=== PATIENT | male | born 1955 | race Caucasian/White ===

== ENCOUNTER → 2021-04-05 08:12 | Outpatient (CLI) | payer MEDICARE, OTHER, SELFPAY ==
[2021-04-05 19:42] LABS: Add Manual Diff / Slide Review NO; Basophils Absolute Auto 0 /uL (0-100); Basophils Percent Auto 0.7 % (0-2); Eosinophils Absolute Auto 0 /uL (0-450); Eosinophils Percent Auto 0.8 % (2-4); Hematocrit 41.3 % (41-53); Hemoglobin 13.9 g/dL (13.5-17.5); Lymphocytes Absolute Auto 1900 /uL (1100-4500); Lymphocytes Percent Auto 33.4 % (25-40); Mean Corpuscular HGB Conc 33.6 % (30-36); Mean Corpuscular Volume 104.4 fL (80-100); Monocytes Absolute Auto 400 /uL (0-900); Monocytes Percent Auto 7.2 % (3-14); Neutrophils Absolute Auto 3200 /uL (1500-7000); Neutrophils Percent Auto 57.9 % (50-75); Platelet Count 328 X10^3/uL (150-400); Red Blood Cell Count 3.96 X10^6/uL (4.5-5.9); White Blood Cell Count 5.6 X10^3/uL (4.5-11.0)
[2021-04-05 20:46] LABS: HEMOLYSIS < 15 (0-50); Iron 123 ug/dL (49-181)
[2021-04-05 20:58] LABS: Percent Iron Saturation 38 % (20-50); Total Iron Binding Capacity 325 ug/dL (261-462); Transferrin 249 mg/dL (206-381)
[2021-04-06 05:33] LABS: Folate 8.8 ng/mL (2.76-20.0); Vitamin B12 531 pg/mL (239-931)
== END ==
PROVIDERS: PCP Internal Medicine; Visit Provider Internal Medicine
DX: E83.110 Hereditary hemochromatosis (principal)
CPT/HCPCS: 82607; 82746; 83540; 83550; 85025

== ENCOUNTER → 2021-04-14 11:04 | Outpatient (CLI) | payer MEDICARE, OTHER, SELFPAY ==
[2021-04-14 19:37] LABS: Ferritin 265 ng/mL (18-464)
== END ==
PROVIDERS: PCP Internal Medicine; Visit Provider Internal Medicine
DX: E83.110 Hereditary hemochromatosis (principal)
CPT/HCPCS: 82728

== ENCOUNTER → 2021-08-15 11:23 | Outpatient (CLI) | payer MEDICARE, OTHER, SELFPAY ==
[2021-08-15 19:36] LABS: HEMOLYSIS < 15 (0-50); Iron 158 ug/dL (49-181)
[2021-08-15 19:40] LABS: Add Manual Diff / Slide Review NO; Basophils Absolute Auto 0 /uL (0-100); Basophils Percent Auto 0.8 % (0-2); Eosinophils Absolute Auto 100 /uL (0-450); Eosinophils Percent Auto 1.3 % (2-4); Hematocrit 39.7 % (41-53); Hemoglobin 13.8 g/dL (13.5-17.5); Lymphocytes Absolute Auto 1400 /uL (1100-4500); Lymphocytes Percent Auto 26.6 % (25-40); Mean Corpuscular HGB Conc 34.7 % (30-36); Mean Corpuscular Hemoglobin 35.5 PG (26-34); Mean Corpuscular Volume 102.6 fL (80-100); Monocytes Absolute Auto 400 /uL (0-900); Monocytes Percent Auto 8.7 % (3-14); Neutrophils Absolute Auto 3200 /uL (1500-7000); Neutrophils Percent Auto 62.6 % (50-75); Platelet Count 313 X10^3/uL (150-400); Red Blood Cell Count 3.87 X10^6/uL (4.5-5.9); Red Cell Distribution Width 11.8 % (11.6-14.8); White Blood Cell Count 5.1 X10^3/uL (4.5-11.0)
[2021-08-15 19:49] LABS: Percent Iron Saturation 50 % (20-50); Total Iron Binding Capacity 313 ug/dL (261-462); Transferrin 252 mg/dL (206-381)
[2021-08-15 20:15] LABS: Ferritin 345 ng/mL (18-464)
[2021-08-15 20:46] LABS: Folate 11.9 ng/mL (2.76-20.0); Vitamin B12 656 pg/mL (239-931)
== END ==
PROVIDERS: PCP Internal Medicine; Referring Provider Internal Medicine; Visit Provider Internal Medicine
DX: E83.110 Hereditary hemochromatosis (principal)
CPT/HCPCS: 82607; 82728; 82746; 83540; 83550; 85025

== ENCOUNTER → 2022-02-23 13:03 | Outpatient (CLI) | payer MEDICARE, OTHER, SELFPAY ==
[2022-02-23 18:48] LABS: Add Manual Diff / Slide Review NO; Basophils Absolute Auto 100 /uL (0-100); Basophils Percent Auto 1.2 % (0-2); Eosinophils Absolute Auto 100 /uL (0-450); Hematocrit 37.6 % (41-53); Hemoglobin 13.1 g/dL (13.5-17.5); Lymphocytes Absolute Auto 1800 /uL (1100-4500); Lymphocytes Percent Auto 28.9 % (25-40); Mean Corpuscular Hemoglobin 34.5 PG (26-34); Mean Corpuscular Volume 98.5 fL (80-100); Monocytes Absolute Auto 400 /uL (0-900); Monocytes Percent Auto 7.3 % (3-14); Neutrophils Absolute Auto 3700 /uL (1500-7000); Neutrophils Percent Auto 60.6 % (50-75); Platelet Count 332 X10^3/uL (150-400); Red Blood Cell Count 3.81 X10^6/uL (4.5-5.9); White Blood Cell Count 6.2 X10^3/uL (4.5-11.0)
[2022-02-23 18:51] LABS: HEMOLYSIS < 15 (0-50); Iron 137 ug/dL (49-181)
[2022-02-23 18:52] LABS: Alanine Aminotransferase 29 IU/L (<50); Albumin Globulin Ratio 1.5 (1.0-2.8); Alkaline Phosphatase 53 U/L (38-126); Aspartate Aminotransferase 27 IU/L (17-59); BUN Creatinine Ratio 29.1 (6-22); Bilirubin Total 0.3 mg/dL (0.2-1.3); Blood Urea Nitrogen 23 mg/dL (9-20); Calcium 8.8 mg/dL (8.4-10.2); Carbon Dioxide 28 mmol/L (22-32); Chloride 106 mmol/L (98-107); Estimated Glomerular Filt Rate > 60 mL/min (>60); Globulin 2.7 g/dL (1.7-4.1); Glucose 148 mg/dL (80-110); HEMOLYSIS < 15 (0-50); Potassium 3.9 mmol/L (3.4-5.1); Sodium 141 mmol/L (137-145); Total Protein 6.7 g/dL (6.3-8.2)
[2022-02-23 19:02] LABS: Percent Iron Saturation 42 % (20-50); Total Iron Binding Capacity 327 ug/dL (261-462); Transferrin 246 mg/dL (206-381)
[2022-02-23 19:16] LABS: Prostate Specific Antigen 2.23 ng/mL (0.10-4.00)
[2022-02-26 10:22] LABS: Ferritin 148 ng/mL (18-464)
== END ==
PROVIDERS: PCP Internal Medicine; Visit Provider Internal Medicine
DX: R97.20 Elevated prostate specific antigen [PSA] (principal); D53.9 Nutritional anemia, unspecified; E83.110 Hereditary hemochromatosis
CPT/HCPCS: 80053; 82728; 83540; 83550; 84153; 85025

== ENCOUNTER → 2022-08-21 13:22 | Outpatient (CLI) | payer MEDICARE, OTHER, SELFPAY ==
[2022-08-21 19:12] LABS: Add Manual Diff / Slide Review NO; Basophils Absolute Auto 0 /uL (0-100); Basophils Percent Auto 0.5 % (0-2); Eosinophils Absolute Auto 100 /uL (0-450); Eosinophils Percent Auto 1.1 % (2-4); Hematocrit 40.4 % (41-53); Hemoglobin 13.9 g/dL (13.5-17.5); Lymphocytes Absolute Auto 2300 /uL (1100-4500); Lymphocytes Percent Auto 35.8 % (25-40); Mean Corpuscular HGB Conc 34.4 % (30-36); Mean Corpuscular Hemoglobin 34.4 PG (26-34); Monocytes Absolute Auto 500 /uL (0-900); Monocytes Percent Auto 7.7 % (3-14); Neutrophils Absolute Auto 3500 /uL (1500-7000); Neutrophils Percent Auto 54.9 % (50-75); Platelet Count 279 X10^3/uL (150-400); Red Blood Cell Count 4.04 X10^6/uL (4.5-5.9); Red Cell Distribution Width 12.7 % (11.6-14.8); White Blood Cell Count 6.4 X10^3/uL (4.5-11.0)
[2022-08-21 19:45] LABS: HEMOLYSIS < 15 (0-50); Iron 162 ug/dL (49-181)
[2022-08-21 19:47] LABS: Alanine Aminotransferase 33 IU/L (<50); Albumin 4.3 g/dL (3.5-5.0); Albumin Globulin Ratio 1.4 (1.0-2.8); Alkaline Phosphatase 57 U/L (38-126); Aspartate Aminotransferase 30 IU/L (17-59); BUN Creatinine Ratio 22.9 (6-22); Bilirubin Total 0.4 mg/dL (0.2-1.3); Blood Urea Nitrogen 22 mg/dL (9-20); Calcium 9.2 mg/dL (8.4-10.2); Carbon Dioxide 30 mmol/L (22-32); Chloride 99 mmol/L (98-107); Estimated Glomerular Filt Rate > 60 mL/min (>60); Glucose 118 mg/dL (80-110); HEMOLYSIS < 15 (0-50); Potassium 4.1 mmol/L (3.4-5.1); Sodium 139 mmol/L (137-145); Total Protein 7.3 g/dL (6.3-8.2)
[2022-08-21 19:55] LABS: Percent Iron Saturation 44 % (20-50); Total Iron Binding Capacity 367 ug/dL (261-462); Transferrin 270 mg/dL (206-381)
[2022-08-21 20:17] LABS: Ferritin 128 ng/mL (18-464)
== END ==
PROVIDERS: PCP Internal Medicine; Visit Provider Internal Medicine
DX: E83.110 Hereditary hemochromatosis (principal); D53.9 Nutritional anemia, unspecified; R97.20 Elevated prostate specific antigen [PSA]
CPT/HCPCS: 80053; 82728; 83540; 83550; 85025

== ENCOUNTER → 2023-01-11 10:31 | Outpatient (CLI) | payer MEDICARE, OTHER, SELFPAY ==
[2023-01-11 18:32] LABS: HEMOLYSIS < 15 (0-50); Iron 126 ug/dL (49-181)
[2023-01-11 18:37] LABS: Add Manual Diff / Slide Review NO; Basophils Absolute Auto 0 /uL (0-100); Basophils Percent Auto 0.8 % (0-2); Eosinophils Absolute Auto 200 /uL (0-450); Eosinophils Percent Auto 3.7 % (2-4); Hematocrit 42.3 % (41-53); Hemoglobin 14.4 g/dL (13.5-17.5); Lymphocytes Absolute Auto 1800 /uL (1100-4500); Lymphocytes Percent Auto 32.3 % (25-40); Mean Corpuscular HGB Conc 34.1 % (30-36); Mean Corpuscular Hemoglobin 34.2 PG (26-34); Mean Corpuscular Volume 100.3 fL (80-100); Monocytes Absolute Auto 500 /uL (0-900); Monocytes Percent Auto 9.3 % (3-14); Neutrophils Absolute Auto 3100 /uL (1500-7000); Neutrophils Percent Auto 53.9 % (50-75); Platelet Count 297 X10^3/uL (150-400); Red Blood Cell Count 4.21 X10^6/uL (4.5-5.9); Red Cell Distribution Width 12.3 % (11.6-14.8); White Blood Cell Count 5.7 X10^3/uL (4.5-11.0)
[2023-01-11 18:43] LABS: Percent Iron Saturation 32 % (20-50); Total Iron Binding Capacity 396 ug/dL (261-462); Transferrin 292 mg/dL (206-381)
[2023-01-11 19:03] LABS: TSH w/ Reflex to FT4 0.63 uIU/mL (0.47-4.68)
[2023-01-11 19:08] LABS: Ferritin 105 ng/mL (18-464)
== END ==
PROVIDERS: PCP Internal Medicine; Visit Provider Internal Medicine
DX: Z23 Encounter for immunization (principal); E83.110 Hereditary hemochromatosis
CPT/HCPCS: 82728; 83540; 83550; 84443; 85025

== ENCOUNTER → 2023-03-19 10:18 | Outpatient (CLI) | payer MEDICARE, OTHER, SELFPAY ==
[2023-03-19 20:12] LABS: Alanine Aminotransferase 46 IU/L (<50); Albumin 4.4 g/dL (3.5-5.0); Albumin Globulin Ratio 1.4 (1.0-2.8); Alkaline Phosphatase 59 U/L (38-126); Aspartate Aminotransferase 38 IU/L (17-59); BUN Creatinine Ratio 16.3 (6-22); Bilirubin Total 0.8 mg/dL (0.2-1.3); Blood Urea Nitrogen 14 mg/dL (9-20); Calcium 9.3 mg/dL (8.4-10.2); Carbon Dioxide 29 mmol/L (22-32); Chloride 101 mmol/L (98-107); Cholesterol 119 mg/dL (140-199); Estimated Glomerular Filt Rate > 60 mL/min (>60); Globulin 3.1 g/dL (1.7-4.1); Glucose 112 mg/dL (80-110); HDL Cholesterol 56 mg/dL (40-60); HEMOLYSIS < 15 (0-50); LDL Cholesterol Calculated 50 mg/dL (<100); Sodium 138 mmol/L (137-145); Total Protein 7.5 g/dL (6.3-8.2); Triglycerides 67 mg/dL (35-150)
[2023-03-21 01:15] LABS: x Labcorp Estim. Avg Glu (eAG) 103 mg/dL (.); x Labcorp Hemoglobin A1c 5.2 % (4.8-5.6)
== END ==
PROVIDERS: PCP Family Medicine
DX: E78.2 Mixed hyperlipidemia (principal); E74.39 Other disorders of intestinal carbohydrate absorption
CPT/HCPCS: 80053; 80061; 83036

== ENCOUNTER → 2023-08-15 10:33 | Outpatient (CLI) | payer MEDICARE, OTHER, SELFPAY ==
[2023-08-15 19:51] LABS: Hemoglobin A1C% w Est Avg Glu 5.1 % (4.0-6.0)
[2023-08-15 19:52] LABS: Alanine Aminotransferase 45 IU/L (<50); Albumin 4.1 g/dL (3.5-5.0); Albumin Globulin Ratio 1.5 (1.0-2.8); Alkaline Phosphatase 57 U/L (38-126); Aspartate Aminotransferase 31 IU/L (17-59); BUN Creatinine Ratio 19.2 (6-22); Bilirubin Total 0.5 mg/dL (0.2-1.3); Blood Urea Nitrogen 15 mg/dL (9-20); Calcium 9.4 mg/dL (8.4-10.2); Carbon Dioxide 27 mmol/L (22-32); Chloride 103 mmol/L (98-107); Cholesterol 104 mg/dL (140-199); Estimated Glomerular Filt Rate > 60 mL/min (>60); Globulin 2.8 g/dL (1.7-4.1); Glucose 113 mg/dL (80-110); HDL Cholesterol 40 mg/dL (40-60); HEMOLYSIS < 15 (0-50); LDL Cholesterol Calculated 42 mg/dL (<100); Potassium 4.2 mmol/L (3.4-5.1); Sodium 137 mmol/L (137-145); Total Protein 6.9 g/dL (6.3-8.2); Triglycerides 109 mg/dL (35-150)
[2023-08-15 20:21] LABS: Ferritin 71 ng/mL (18-464)
== END ==
PROVIDERS: PCP Family Medicine; Visit Provider Internal Medicine
DX: E78.2 Mixed hyperlipidemia; E74.39 Other disorders of intestinal carbohydrate absorption; E83.110 Hereditary hemochromatosis; F41.1 Generalized anxiety disorder; F32.A Depression, unspecified; F10.90 Alcohol use, unspecified, uncomplicated; E78.5 Hyperlipidemia, unspecified; I10 Essential (primary) hypertension; I25.10 Atherosclerotic heart disease of native coronary artery without angina pectoris
CPT/HCPCS: 80053; 80061; 82728; 83036

== ENCOUNTER → 2023-08-26 10:18 | Outpatient (CLI) | payer MEDICARE, OTHER, SELFPAY ==
--- NOTE | 2023-08-26 10:20 | DI.MRI.S_ITS ---
PROCEDURE: MR LUMBAR SPINE WO CON INDICATIONS: left sided foot drop and weakness TECHNIQUE: Noncontrast sagittal T1 spin echo and T2 fast echo, sagittal STIR, and T2 fast spin echo through the lumbar spine. In cases with scoliosis, additional coronal T2 fast spin echo may be performed. COMPARISON: None. FINDINGS: Image quality: Excellent. Alignment and Curvature: There is normal bony alignment. Bone Marrow: Marrow is of normal overall signal. No acute vertebral body compression fractures. Spinal Cord: Conus medullaris terminates at the L1 level. Visualized cord demonstrates normal signal and size. Paraspinous Soft Tissues: No paravertebral masses. T12-L1: Mild disc desiccation and height loss. No canal stenosis. No foraminal stenosis. L1-L2: Mild disc desiccation and height loss. Mild facet ligamentum flavum hypertrophy. No canal stenosis. No foraminal stenosis. L2-L3: Mild disc desiccation and height loss. Moderate facet ligamentum flavum hypertrophy. No canal stenosis. Mild bilateral foraminal stenosis. L3-L4: Mild disc desiccation and height loss. Broad-based disc bulge. Moderate facet ligamentum flavum hypertrophy. Mild canal stenosis. Mild bilateral foraminal stenosis. L4-L5: Mild disc desiccation and height loss. Broad-based disc bulge. Moderate canal stenosis. Severe facet ligamentum flavum hypertrophy. Mild bilateral foraminal stenosis. L5-S1: Mild disc desiccation and height loss. Broad-based disc bulge. Severe facet and ligamentum flavum hypertrophy. Mild canal stenosis. Moderate bilateral foraminal stenosis. IMPRESSION: 1. Mild disc desiccation and height loss throughout the lumbar spine. 2. Multilevel facet ligamentum flavum hypertrophy with resultant mild canal stenosis at L3-4 and L5-S1 and moderate canal stenosis at L4-5. 3. Moderate bilateral foraminal stenosis at L5-S1. Dictated by: Zeinab Hoskins M.D. on 08/26/2023 at 11:47 Approved by: Zeinab Hoskins M.D. on 08/26/2023 at 11:52
== END ==
PROVIDERS: PCP Family Medicine; Referring Provider Family Medicine; Visit Provider Family Medicine
DX: R29.898 Other symptoms and signs involving the musculoskeletal system (principal); M47.896 Other spondylosis, lumbar region; M48.061 Spinal stenosis, lumbar region without neurogenic claudication; M48.07 Spinal stenosis, lumbosacral region
CPT/HCPCS: 72148

== ENCOUNTER → 2023-08-30 10:25 | Outpatient (CLI) | payer MEDICARE, OTHER, SELFPAY ==
--- NOTE | 2023-08-30 10:26 | DI.MRI.S_ITS ---
PROCEDURE: MR KNEE LT WO CON INDICATIONS: left knee pain not responding to treatment TECHNIQUE: Noncontrast sagittal PD fast spin echo and T2 fast spin echo with fat saturation, sagittal 3-D FLASH with fat saturation; coronal T1 spin echo and PD fast spin echo with fat saturation, and axial PD fast spin echo with fat saturation through the knee. COMPARISON: None. FINDINGS: Image quality: Excellent. Menisci: Oblique tear involving posterior horn of medial meniscus is seen extending to inferior articulating surface. The lateral meniscus is intact. The meniscal root ligaments appear intact. Cruciate ligaments: The anterior cruciate ligament is mildly thickened with intrasubstance T2 hyperintense signal. No ACL rupture. The PCL is intact. Medial structures: The medial collateral ligament appears mildly thickened. The posterior oblique ligament, semimembranosus tendon insertions, oblique popliteal ligament, and meniscocapsular junction appear intact. Visualized portions of the pes anserinus tendons appear normal. No abnormal bursal fluid. Lateral structures: The lateral collateral ligament, long and short heads of the biceps femoris tendon appear intact. The popliteus tendon appears normal; the popliteofibular ligament appears intact. Iliotibial band appears normal. Anterior structures: Distal quadriceps tendinosis at its superior patellar insertion is seen. The patellar tendon is intact. Patellar alignment is normal. No femoral trochlear dysplasia or ventral trochlear prominence. No edema in the infrapatellar fat pad. Bones and cartilage: No bone marrow contusions or fractures. [id number] tricompartmental osteoarthritis and chondromalacia is seen more notably in medial femoral tibial compartment and medial portion of patellofemoral compartment. Joint space: There is small knee joint fluid. No Dickinson's cyst. Normal appearing synovial plicae are incidentally noted. IMPRESSION: 1. Oblique tear involving posterior horn of medial meniscus extending to inferior articulating surface. No lateral meniscal tear. 2. Suggestion of degenerative changes and low-grade partial-thickness tear in anterior cruciate ligament. No ACL rupture. The PCL is intact. 3. Low-grade MCL sprain. 4. Distal quadriceps tendinosis. 5. [id number] tricompartmental osteoarthritis and chondromalacia more notably in medial femoral tibial compartment and patellofemoral compartment as above. No fracture or dislocation. Small joint effusion. Dictated by: Jean Paul Dawkins M.D. on 08/30/2023 at 18:49 Approved by: Jean Paul Dawkins M.D. on 08/30/2023 at 18:51
== END ==
PROVIDERS: PCP Family Medicine; Referring Provider Family Medicine; Visit Provider Family Medicine
DX: M25.562 Pain in left knee (principal); S83.207A Unspecified tear of unspecified meniscus, current injury, left knee, initial encounter; S83.412A Sprain of medial collateral ligament of left knee, initial encounter; M17.12 Unilateral primary osteoarthritis, left knee; M94.262 Chondromalacia, left knee; M25.462 Effusion, left knee
CPT/HCPCS: 73721

== ENCOUNTER → 2023-09-03 12:59 | Outpatient (CLI) | payer MEDICARE, OTHER, SELFPAY ==
[2023-09-03 19:17] LABS: Add Manual Diff / Slide Review NO; Basophils Absolute Auto 0 /uL (0-100); Basophils Percent Auto 0.7 % (0-2); Eosinophils Absolute Auto 100 /uL (0-450); Eosinophils Percent Auto 2.4 % (2-4); Hematocrit 39.5 % (41-53); Hemoglobin 13.8 g/dL (13.5-17.5); Lymphocytes Absolute Auto 1900 /uL (1100-4500); Lymphocytes Percent Auto 38.9 % (25-40); Mean Corpuscular HGB Conc 34.9 % (30-36); Mean Corpuscular Hemoglobin 34.4 PG (26-34); Mean Corpuscular Volume 98.8 fL (80-100); Monocytes Absolute Auto 500 /uL (0-900); Monocytes Percent Auto 10.6 % (3-14); Neutrophils Absolute Auto 2400 /uL (1500-7000); Neutrophils Percent Auto 47.4 % (50-75); Platelet Count 294 X10^3/uL (150-400); Red Cell Distribution Width 12.3 % (11.6-14.8)
[2023-09-03 20:49] LABS: Urine N gonorrhoeae NOT DETECTED
[2023-09-03 21:10] LABS: Urine Chlamydia NOT DETECTED
[2023-09-05 06:24] LABS: RPR Screen Non Reactive (Non Reactive)
[2023-09-05 15:36] LABS: HIV 1 & 2 Ab/Ag 4th Gen Combo NEGATIVE (NEGATIVE)
== END ==
PROVIDERS: PCP Family Medicine; Visit Provider Family Medicine
DX: I25.10 Atherosclerotic heart disease of native coronary artery without angina pectoris (principal); Z20.2 Contact with and (suspected) exposure to infections with a predominantly sexual mode of transmission; B02.29 Other postherpetic nervous system involvement; F41.1 Generalized anxiety disorder; F32.A Depression, unspecified; F10.90 Alcohol use, unspecified, uncomplicated; I10 Essential (primary) hypertension; E78.5 Hyperlipidemia, unspecified
CPT/HCPCS: 85025; 86592; 87389; 87491; 87591

== ENCOUNTER → 2024-03-16 11:38 | Outpatient (CLI) | payer MEDICARE, OTHER, SELFPAY ==
[2024-03-16 19:55] LABS: Add Manual Diff / Slide Review NO; Basophils Absolute Auto 100 /uL (0-100); Basophils Percent Auto 0.9 % (0-2); Eosinophils Absolute Auto 100 /uL (0-450); Eosinophils Percent Auto 2.5 % (2-4); Hematocrit 39.2 % (41-53); Hemoglobin 13.7 g/dL (13.5-17.5); Lymphocytes Absolute Auto 2100 /uL (1100-4500); Mean Corpuscular HGB Conc 34.9 % (30-36); Mean Corpuscular Hemoglobin 34.7 PG (26-34); Mean Corpuscular Volume 99.5 fL (80-100); Monocytes Absolute Auto 500 /uL (0-900); Monocytes Percent Auto 8.4 % (3-14); Neutrophils Absolute Auto 3200 /uL (1500-7000); Neutrophils Percent Auto 53.2 % (50-75); Platelet Count 292 X10^3/uL (150-400); Red Blood Cell Count 3.94 X10^6/uL (4.5-5.9); Red Cell Distribution Width 12.3 % (11.6-14.8)
[2024-03-16 19:57] LABS: HEMOLYSIS < 15 (0-50); Iron 123 ug/dL (49-181)
[2024-03-16 20:09] LABS: Percent Iron Saturation 32 % (20-50); Total Iron Binding Capacity 384 ug/dL (261-462); Transferrin 293 mg/dL (206-381)
== END ==
PROVIDERS: PCP Family Medicine; Visit Provider Internal Medicine
DX: E83.110 Hereditary hemochromatosis (principal)
CPT/HCPCS: 83540; 83550; 85025

== ENCOUNTER → 2024-06-15 11:56 | Outpatient (CLI) | payer MEDICARE, OTHER, SELFPAY ==
[2024-06-15 20:02] LABS: Add Manual Diff / Slide Review NO; Basophils Absolute Auto 0 /uL (0-100); Basophils Percent Auto 0.6 % (0-2); Eosinophils Absolute Auto 200 /uL (0-450); Eosinophils Percent Auto 3.1 % (2-4); Hematocrit 39.4 % (41-53); Hemoglobin 13.8 g/dL (13.5-17.5); Lymphocytes Absolute Auto 2100 /uL (1100-4500); Lymphocytes Percent Auto 31.5 % (25-40); Mean Corpuscular HGB Conc 35.1 % (30-36); Mean Corpuscular Hemoglobin 34.8 PG (26-34); Mean Corpuscular Volume 99.3 fL (80-100); Monocytes Absolute Auto 600 /uL (0-900); Monocytes Percent Auto 8.9 % (3-14); Neutrophils Absolute Auto 3700 /uL (1500-7000); Neutrophils Percent Auto 55.9 % (50-75); Platelet Count 276 X10^3/uL (150-400); Red Blood Cell Count 3.97 X10^6/uL (4.5-5.9); Red Cell Distribution Width 12.1 % (11.6-14.8); White Blood Cell Count 6.7 X10^3/uL (4.5-11.0)
[2024-06-15 21:21] LABS: HEMOLYSIS < 15 (0-50); Iron 149 ug/dL (49-181)
[2024-06-15 21:36] LABS: Percent Iron Saturation 39 % (20-50); Total Iron Binding Capacity 380 ug/dL (261-462); Transferrin 299 mg/dL (206-381)
== END ==
PROVIDERS: PCP Family Medicine; Visit Provider Internal Medicine
DX: E83.110 Hereditary hemochromatosis (principal)
CPT/HCPCS: 83540; 83550; 85025

== ENCOUNTER → 2024-08-17 10:00 | Outpatient (CLI) | payer MEDICARE, OTHER, SELFPAY ==
[2024-08-17 20:55] LABS: Cholesterol 116 mg/dL (140-199); HDL Cholesterol 46 mg/dL (40-60); LDL Cholesterol Calculated 55 mg/dL (<100); Triglycerides 76 mg/dL (35-150)
[2024-08-17 21:48] LABS: Ferritin 142 ng/mL (18-464)
== END ==
PROVIDERS: PCP Family Medicine; Visit Provider Family Medicine
DX: Z12.5 Encounter for screening for malignant neoplasm of prostate (principal); D64.9 Anemia, unspecified; Z13.6 Encounter for screening for cardiovascular disorders; E78.5 Hyperlipidemia, unspecified; E83.119 Hemochromatosis, unspecified
CPT/HCPCS: 80061; 82728; G0103

== ENCOUNTER → 2024-10-21 13:25 | Outpatient (CLI) | payer MEDICARE, OTHER, SELFPAY ==
[2024-10-21 20:17] LABS: Alanine Aminotransferase 39 IU/L (<50); Albumin 3.9 g/dL (3.5-5.0); Albumin Globulin Ratio 1.3 (1.0-2.8); Alkaline Phosphatase 62 U/L (38-126); Aspartate Aminotransferase 32 IU/L (17-59); BUN Creatinine Ratio 23.4 (6-22); Bilirubin Total 0.4 mg/dL (0.2-1.3); Blood Urea Nitrogen 22 mg/dL (9-20); Calcium 9.1 mg/dL (8.4-10.2); Carbon Dioxide 25 mmol/L (22-32); Chloride 104 mmol/L (98-107); Estimated Glomerular Filt Rate > 60 mL/min (>60); Glucose 166 mg/dL (80-110); HEMOLYSIS < 15 (0-50); Potassium 3.9 mmol/L (3.4-5.1); Sodium 136 mmol/L (137-145); Total Protein 6.9 g/dL (6.3-8.2)
== END ==
PROVIDERS: PCP Family Medicine; Referring Provider Internal Medicine Interventional Cardiology; Visit Provider Internal Medicine Interventional Cardiology
DX: E78.2 Mixed hyperlipidemia (principal)
CPT/HCPCS: 80053

== ENCOUNTER → 2024-11-12 09:53 | Outpatient (CLI) | payer MEDICARE, OTHER, SELFPAY ==
[2024-11-12 20:08] LABS: HEMOLYSIS < 15 (0-50); Iron 228 ug/dL (49-181)
[2024-11-12 20:10] LABS: Hemoglobin A1C% w Est Avg Glu 5.4 % (4.0-6.0)
[2024-11-12 20:23] LABS: Total Iron Binding Capacity 317 ug/dL (261-462); Transferrin 265 mg/dL (206-381)
[2024-11-12 20:25] LABS: Percent Iron Saturation 72 % (20-50)
== END ==
PROVIDERS: PCP Family Medicine; Visit Provider Family Medicine
DX: R73.9 Hyperglycemia, unspecified (principal); F41.1 Generalized anxiety disorder; I25.10 Atherosclerotic heart disease of native coronary artery without angina pectoris; E83.119 Hemochromatosis, unspecified; E78.5 Hyperlipidemia, unspecified; N40.1 Benign prostatic hyperplasia with lower urinary tract symptoms; N13.8 Other obstructive and reflux uropathy; D64.9 Anemia, unspecified; I10 Essential (primary) hypertension
CPT/HCPCS: 83036; 83540; 83550

== ENCOUNTER → 2024-12-08 13:23 | Outpatient (CLI) | payer MEDICARE, OTHER, SELFPAY ==
[2024-12-08 19:22] LABS: Add Manual Diff / Slide Review NO; Basophils Absolute Auto 100 /uL (0-100); Basophils Percent Auto 0.7 % (0-2); Eosinophils Absolute Auto 0 /uL (0-450); Eosinophils Percent Auto 0.1 % (2-4); Hematocrit 39.2 % (41-53); Hemoglobin 13.2 g/dL (13.5-17.5); Lymphocytes Absolute Auto 1300 /uL (1100-4500); Lymphocytes Percent Auto 18.3 % (25-40); Mean Corpuscular HGB Conc 33.8 % (30-36); Mean Corpuscular Hemoglobin 33.8 PG (26-34); Mean Corpuscular Volume 100.2 fL (80-100); Monocytes Absolute Auto 400 /uL (0-900); Monocytes Percent Auto 5.2 % (3-14); Neutrophils Absolute Auto 5200 /uL (1500-7000); Neutrophils Percent Auto 75.7 % (50-75); Platelet Count 323 X10^3/uL (150-400); Red Blood Cell Count 3.91 X10^6/uL (4.5-5.9); Red Cell Distribution Width 12.9 % (11.6-14.8); White Blood Cell Count 6.9 X10^3/uL (4.5-11.0)
[2024-12-08 19:33] LABS: HEMOLYSIS < 15 (0-50); Iron 148 ug/dL (49-181)
[2024-12-08 19:43] LABS: Percent Iron Saturation 44 % (20-50); Total Iron Binding Capacity 338 ug/dL (261-462); Transferrin 311 mg/dL (206-381)
[2024-12-08 20:11] LABS: Ferritin 92 ng/mL (18-464)
== END ==
PROVIDERS: PCP Family Medicine; Visit Provider Internal Medicine
DX: E83.110 Hereditary hemochromatosis (principal)
CPT/HCPCS: 82728; 83540; 83550; 85025

== ENCOUNTER → 2024-12-18 08:58 | Outpatient (CLI) | payer MEDICARE, OTHER, SELFPAY ==
--- NOTE | 2024-12-18 09:00 | DI.MRI.S_ITS ---
PROCEDURE: MR TMJ WO CON INDICATIONS: Right TMJ pain TECHNIQUE: Axial T1 spin echo, coronal and sagittal PD fast spin echo through the temporomandibular joints, in both the closed- and open-mouth positions. COMPARISON: None. FINDINGS: Image quality: The open mouth images are limited, as the patient was unable to open his mouth fully. On the closed mouth images, the articular discs demonstrate normal morphology, without abnormal signal. However, they are more posteriorly located than would be expected. On the limited open mouth images, the articular discs are unremarkable. On both sides, no abnormal erosions or osteophytes can be seen. No dislocations are seen. No bony edema is seen. There is focal moderate mucosal thickening within the visualized right maxillary sinus. The surrounding soft tissues are otherwise unremarkable. IMPRESSION: No significant abnormality is seen, although on the closed mouth images, the articular discs are both more posteriorly located than would be expected. Dictated by: Freddy Pleitez M.D. on 12/18/2024 at 9:26 Approved by: Freddy Pleitez M.D. on 12/18/2024 at 9:30
== END ==
PROVIDERS: PCP Family Medicine; Referring Provider Family Medicine; Visit Provider Family Medicine
DX: M26.621 Arthralgia of right temporomandibular joint (principal)
CPT/HCPCS: 70336

== ENCOUNTER → 2025-01-05 14:10 | Outpatient (CLI) | payer MEDICARE, OTHER, SELFPAY ==
[2025-01-05 20:14] LABS: HEMOLYSIS < 15 (0-50); Iron 166 ug/dL (49-181)
[2025-01-05 20:21] LABS: Add Manual Diff / Slide Review NO; Basophils Absolute Auto 0 /uL (0-100); Basophils Percent Auto 0.2 % (0-2); Eosinophils Absolute Auto 0 /uL (0-450); Eosinophils Percent Auto 0.1 % (2-4); Hematocrit 41.5 % (41-53); Hemoglobin 14.5 g/dL (13.5-17.5); Lymphocytes Absolute Auto 1600 /uL (1100-4500); Lymphocytes Percent Auto 19.2 % (25-40); Mean Corpuscular Hemoglobin 34.7 PG (26-34); Mean Corpuscular Volume 99.2 fL (80-100); Monocytes Absolute Auto 400 /uL (0-900); Monocytes Percent Auto 5.3 % (3-14); Neutrophils Absolute Auto 6400 /uL (1500-7000); Neutrophils Percent Auto 75.2 % (50-75); Platelet Count 343 X10^3/uL (150-400); Red Blood Cell Count 4.18 X10^6/uL (4.5-5.9); Red Cell Distribution Width 12.3 % (11.6-14.8); White Blood Cell Count 8.5 X10^3/uL (4.5-11.0)
[2025-01-05 20:28] LABS: Percent Iron Saturation 48 % (20-50); Total Iron Binding Capacity 349 ug/dL (261-462); Transferrin 342 mg/dL (206-381)
[2025-01-05 20:53] LABS: Ferritin 108 ng/mL (18-464)
== END ==
PROVIDERS: PCP Family Medicine; Visit Provider Internal Medicine
DX: E83.110 Hereditary hemochromatosis (principal)
CPT/HCPCS: 82728; 83540; 83550; 85025

== ENCOUNTER → 2025-03-08 14:22 | Outpatient (CLI) | payer MEDICARE, OTHER, SELFPAY | PROVIDERS: PCP Family Medicine; Visit Provider Family Medicine | DX: N40.1 Benign prostatic hyperplasia with lower urinary tract symptoms (principal); N13.8 Other obstructive and reflux uropathy; R39.11 Hesitancy of micturition; N31.2 Flaccid neuropathic bladder, not elsewhere classified; R39.89 Other symptoms and signs involving the genitourinary system | CPT/HCPCS: 81002; 87086 ==

== ENCOUNTER 2025-04-15 10:15 | Outpatient (RCR) | payer MEDICARE, OTHER, SELFPAY | END 2025-04-15 12:15 | LOC: CAR 10:15 | PROVIDERS: PCP Family Medicine; Referring Provider Thoracic Surgery (Cardiothoracic Vascular Surgery); Visit Provider Thoracic Surgery (Cardiothoracic Vascular Surgery) | DX: Z95.1 Presence of aortocoronary bypass graft (principal) | CPT/HCPCS: 93798 ==

== ENCOUNTER → 2025-06-01 11:29 | Outpatient (CLI) | payer MEDICARE, OTHER, SELFPAY ==
[2025-06-01 19:22] LABS: Add Manual Diff / Slide Review NO; Hematocrit 39.7 % (41-53); Hemoglobin 14.0 g/dL (13.5-17.5); Lymphocytes Absolute Auto 2100 /uL (1100-4500); Mean Corpuscular HGB Conc 35.1 % (30-36); Mean Corpuscular Hemoglobin 33.0 PG (26-34); Mean Corpuscular Volume 93.9 fL (80-100); Platelet Count 271 X10^3/uL (150-400)
[2025-06-01 20:30] LABS: Ferritin 36 ng/mL (18-464)
[2025-06-01 20:47] LABS: HEMOLYSIS < 15 (0-50); Iron 132 ug/dL (49-181)
[2025-06-01 20:59] LABS: Percent Iron Saturation 34 % (20-50); Total Iron Binding Capacity 386 ug/dL (261-462)
[2025-06-01 21:03] LABS: Transferrin 307 mg/dL (206-381)
== END ==
PROVIDERS: PCP Family Medicine; Visit Provider Internal Medicine
DX: E83.110 Hereditary hemochromatosis (principal)
CPT/HCPCS: 82728; 83540; 83550; 85025

== ENCOUNTER → 2025-06-10 09:21 | Outpatient (CLI) | payer MEDICARE, OTHER, SELFPAY | PROVIDERS: PCP Family Medicine; Visit Provider Family Medicine | DX: L72.3 Sebaceous cyst (principal); L08.9 Local infection of the skin and subcutaneous tissue, unspecified | CPT/HCPCS: 87070; 87075; 87205 ==

== ENCOUNTER → 2025-08-10 13:50 | Outpatient (CLI) | payer MEDICARE, OTHER, SELFPAY ==
[2025-08-10 19:06] LABS: HEMOLYSIS < 15 (0-50); Iron 226 ug/dL (49-181)
[2025-08-10 19:16] LABS: Add Manual Diff / Slide Review NO; Hematocrit 42.3 % (41-53); Hemoglobin 14.7 g/dL (13.5-17.5); Lymphocytes Absolute Auto 3200 /uL (1100-4500); Mean Corpuscular HGB Conc 34.7 % (30-36); Mean Corpuscular Hemoglobin 34.1 PG (26-34); Mean Corpuscular Volume 98.3 fL (80-100); Platelet Count 256 X10^3/uL (150-400)
[2025-08-10 19:21] LABS: Percent Iron Saturation 61 % (20-50); Total Iron Binding Capacity 370 ug/dL (261-462); Transferrin 311 mg/dL (206-381)
[2025-08-10 19:42] LABS: Ferritin 105 ng/mL (18-464)
== END ==
PROVIDERS: PCP Family Medicine; Visit Provider Internal Medicine
DX: E83.110 Hereditary hemochromatosis (principal)
CPT/HCPCS: 82728; 83540; 83550; 85025

== ENCOUNTER → 2025-09-09 10:54 | Outpatient (CLI) | payer MEDICARE, OTHER, SELFPAY ==
[2025-09-09 18:44] LABS: Add Manual Diff / Slide Review NO; Hematocrit 39.4 % (41-53); Hemoglobin 13.9 g/dL (13.5-17.5); Lymphocytes Absolute Auto 1700 /uL (1100-4500); Mean Corpuscular HGB Conc 35.1 % (30-36); Mean Corpuscular Hemoglobin 33.7 PG (26-34); Mean Corpuscular Volume 95.8 fL (80-100); Platelet Count 376 X10^3/uL (150-400)
[2025-09-09 18:50] LABS: HEMOLYSIS < 15 (0-50); Iron 135 ug/dL (49-181)
[2025-09-09 19:05] LABS: Percent Iron Saturation 33 % (20-50); Total Iron Binding Capacity 414 ug/dL (261-462); Transferrin 355 mg/dL (206-381)
[2025-09-09 19:28] LABS: Ferritin 50 ng/mL (18-464)
== END ==
PROVIDERS: PCP Family Medicine; Visit Provider Internal Medicine
DX: E83.110 Hereditary hemochromatosis (principal)
CPT/HCPCS: 82728; 83540; 83550; 85025

== ENCOUNTER → 2025-09-14 08:39 | Outpatient (CLI) | payer MEDICARE, OTHER, SELFPAY ==
--- NOTE | 2025-09-14 08:40 | DI.CT.S_ITS ---
PROCEDURE: CT CHEST WO CON INDICATIONS: Persistent left posterior pain after fall TECHNIQUE: Noncontrast 5 mm thick sections acquired from the pulmonary apices to the posterior costophrenic angles. 1 mm lung window, 5 mm thick coronal and sagittal and 7 mm axial MIP reformats were then acquired. For radiation dose reduction, the following was used: automated exposure control, adjustment of mA and/or kV according to patient size. COMPARISON: None. FINDINGS: Image quality: Diagnostic. Some images are limited by beam hardening artifacts, motion artifacts. Left posterior-lateral 9th and 10th acute appearing nondisplaced rib fractures. Median sternotomy, CABG. Moderate calcifications of the coronary arteries and mild calcifications of the aortic arch and descending aorta. No pneumothorax, no pleural effusion, no pericardial effusion, no focal consolidation. Thoracic vertebral body heights, alignment within normal limits without CT evidence of fracture or subluxation. Moderate degenerative changes of the thoracic spine with multilevel anterior bridging osteophytes which may be related to diffuse idiopathic skeletal hyperostosis or other process. Lower Neck: No enlarged lymph nodes. Thyroid: No thyroid nodules which require sonographic follow up, per consensus guidelines. Axillae: No enlarged lymph nodes. Heart: Heart size is normal. Thoracic Vessels: The aorta and pulmonary arteries demonstrate normal size. Mediastinum and Shae: No enlarged lymph nodes. Esophagus: No wall thickening. No hiatal hernia. Upper Abdomen: Visualized upper abdomen solid organs and bowel loops appear normal. IMPRESSION: Nondisplaced fractures left posterior lateral 9th and 10th ribs. Other chronic findings as above. Dictated by: Cliff Abbott M.D. on 09/14/2025 at 12:24 Approved by: Cliff Abbott M.D. on 09/14/2025 at 12:29
== END ==
LOC: CT 08:40
PROVIDERS: PCP Family Medicine; Referring Provider Family Medicine; Visit Provider Family Medicine
DX: S22.42XA Multiple fractures of ribs, left side, initial encounter for closed fracture (principal); I25.10 Atherosclerotic heart disease of native coronary artery without angina pectoris; Z95.1 Presence of aortocoronary bypass graft
CPT/HCPCS: 71250

== ENCOUNTER → 2025-09-24 08:54 | Outpatient (CLI) | payer MEDICARE, OTHER, SELFPAY ==
[2025-09-24 18:30] LABS: Cholesterol 125 mg/dL (140-199); HDL Cholesterol 49 mg/dL (40-60); Triglycerides 87 mg/dL (35-150)
== END ==
LOC: LAB 08:54
PROVIDERS: PCP Family Medicine; Visit Provider Family Medicine
DX: E78.2 Mixed hyperlipidemia (principal)
CPT/HCPCS: 80061

== ENCOUNTER → 2025-10-13 11:34 | Outpatient (CLI) | payer MEDICARE, OTHER, SELFPAY ==
[2025-10-13 18:59] LABS: Add Manual Diff / Slide Review NO; Hematocrit 42.0 % (41-53); Hemoglobin 14.5 g/dL (13.5-17.5); Lymphocytes Absolute Auto 2000 /uL (1100-4500); Mean Corpuscular HGB Conc 34.6 % (30-36); Mean Corpuscular Hemoglobin 34.2 PG (26-34); Mean Corpuscular Volume 98.7 fL (80-100); Platelet Count 288 X10^3/uL (150-400)
[2025-10-13 19:05] LABS: HEMOLYSIS < 15 (0-50); Iron 179 ug/dL (49-181)
[2025-10-13 19:18] LABS: Percent Iron Saturation 49 % (20-50); Total Iron Binding Capacity 362 ug/dL (261-462); Transferrin 294 mg/dL (206-381)
[2025-10-13 19:40] LABS: Ferritin 41 ng/mL (18-464)
== END ==
PROVIDERS: PCP Family Medicine; Visit Provider Internal Medicine
DX: E83.110 Hereditary hemochromatosis (principal)
CPT/HCPCS: 82728; 83540; 83550; 85025